=== PATIENT | female | born 1960 | race Caucasian/White ===

== ENCOUNTER 2021-05-12 06:50 | Observation (INO) | payer OTHER, SELFPAY ==
[2021-05-12] VITALS (10 sets, daily range): BP systolic 127–161; BP diastolic 72–88; PULSE 75–101; RESP 16–21; TEMP 36.3–36.9; O2SAT 96–100; BMI 25.4; BMI 25.6
[2021-05-12 07:23] LABS: Microscopic, Urine URINE MICROSCOPIC (MICROSCOPIC)
[2021-05-12 07:26] LABS: Appearance,Urine CLOUDY (Clear); Bilirubin,Urine Negative (Negative); Blood, Urine TRACE-I (Negative); Color,Urine YELLOW (Yellow); Glucose,Urine (UA) Negative (Negative); Ketones,Urine Negative (Negative); Leukocyte Esterase,Urine Negative (Negative); Nitrate,Urine Negative (Negative); PH,Urine 7.5 (5.0-8.5); Protein,Urine Negative (Negative); Urobilinogen,Urine 0.2 EU/dl (0.2)
--- NOTE | 2021-05-12 07:33 | CT_ITS ---
PROCEDURE INFORMATION: Exam: CT Abdomen And Pelvis With Contrast Exam date and time: 05/12/2021 7:33 AM Age: 60 years old Clinical indication: Abdominal pain; Acute; Additional info: Abd pain with nausea TECHNIQUE: Imaging protocol: Computed tomography of the abdomen and pelvis with contrast. Radiation optimization: All CT scans at this facility use at least one of these dose optimization techniques: automated exposure control; mA and/or kV adjustment per patient size (includes targeted exams where dose is matched to clinical indication); or iterative reconstruction. Contrast material: ISOVUE; Contrast volume: 75 ml; Contrast route: IV; COMPARISON: No relevant prior studies available. FINDINGS: Lungs: Bibasilar atelectasis Liver: 4.2 cm simple cyst in the right lobe of the liver. . No follow-up imaging recommended . Hepatic steatosis Gallbladder and bile ducts: Normal. No calcified stones. No ductal dilation. Pancreas: Normal. No ductal dilation. Spleen: Normal. No splenomegaly. Adrenal glands: Normal. No mass. Kidneys and ureters: Normal. No hydronephrosis. Stomach and bowel: Dilated loops of small bowel with air-fluid levels. Intermittent bowel wall thickening in loops of small bowel (series 3, image 51 findings may represent enteritis, ileus and obstruction.. Bowel wall thickening continues to the ileocecal valve. Series 3, image 85.. Appendix: Normal appendix Intraperitoneal space: Mild to moderate free fluid in the pelvis. Vasculature: Unremarkable. No abdominal aortic aneurysm. Lymph nodes: Unremarkable. No enlarged lymph nodes. Urinary bladder: Unremarkable as visualized. Reproductive: Unremarkable as visualized. Bones/joints: Unremarkable. No acute fracture. Soft tissues: Unremarkable. IMPRESSION: Dilated loops of small bowel with air-fluid levels. Intermittent bowel wall thickening in loops of small bowel (series 3, image 51 findings may represent enteritis, ileus and obstruction.. Bowel wall thickening continues to the ileocecal valve. Series 3, image 85..
[2021-05-12 07:46] LABS: Basophils % 0.5 % (0.1-2.0); Eosinophils # 0.2 K/mm3 (0.0-0.4); Eosinophils % 2.2 % (0.1-12.0); Hematocrit 42.5 % (37.0-47.0); Hemoglobin 13.9 g/dL (12.2-16.2); Lymphocytes % 11.9 % (10-50); Mean Corpuscular HGB Conc 32.8 g/dL (31.8-35.4); Mean Corpuscular Hemoglobin 29.6 pg (27.0-31.2); Mean Corpuscular Volume 90.2 fl (81-99); Mean Platelet Volume 7.9 fl (7.4-10.4); Monocytes # 0.4 K/mm3 (0.1-1.0); Monocytes % 4.5 % (1.7-9.3); Neutrophils # 6.8 K/mm3 (1.8-7.8); Neutrophils % 80.9 % (37.0-80.0); Platelet Count 257 K/mm3 (142-424); Red Cell Distribution Width 13.6 % (11.5-17.5); White Blood Count 8.5 K/mm3 (4.8-10.8)
[2021-05-12 07:46] LABS: Bacteria,Urine Trace /lpf; RBC,Urine Occasional #/hpf (0-3)
[2021-05-12 07:55] LABS: Chloride 106 mmol/L (98-107); Potassium 3.8 mmoL/L (3.5-5.1); Sodium 145 mmol/L (136-145)
[2021-05-12 07:57] LABS: Alanine Aminotransferase 32 U/L (12-78); Amylase 85 U/L (30-110); Anion Gap 12.8 mEq/L (5-15); Aspartate Amino Transferase 40 U/L (14-36); Blood Urea Nitrogen 12 mg/dl (7-17); Carbon Dioxide 30 mmol/L (22.0-30.0); Creatinine Clearance Estimated 93 mL/min (50-200); Estimated Glomerular Filt Rate 86 ml/min (>60); GFR (African American) 104 ML/MIN (>60)
[2021-05-12 07:58] LABS: Albumin Level 4.2 g/dl (3.5-5.0); Albumin/Globulin Ratio 1.4 (1.1-1.8); Alkaline Phosphatase 67 U/L (38-126); Bilirubin,Total 0.3 mg/dl (0.2-1.3); Calcium 9.2 mg/dl (8.4-10.2); Globulin 2.9 g/dL (1.3-3.2); Glucose 140 mg/dl (74-100); Lipase 86 U/L (23-300); Total Protein,Serum 7.1 g/dl (6.3-8.2)
[2021-05-12 08:04] LABS: C-Reactive Protein 4.7 mg/L (0-4)
--- NOTE | 2021-05-12 08:20 | HMH.EDGENADL ---
ED Disposition Clinical Impression: Enteritis, Small bowel obstruction Disposition: Admitted as Observation Condition on Discharge: Good Time of Disposition: 10:37 - Critical Care Critical Care Time: No Attestation: On 05/12/21, the high probability of a clinically significant, sudden or life threatening deterioration of the following system(s) required my full and direct attention, intervention and personal management. The time I documented below is in addition to time spent performing reported procedures but includes the following listed in this critical care notation. Medical Decision Making - Medical Records Medical records reviewed: Yes: I reviewed the patient's medical records. - Antwan Inquiry Pt receiving controlled substance: No Vital Signs: 05/12/21 06:52 05/12/21 12:43 05/12/21 14:02 Temperature 98.3 F Temperature Source Oral Pulse Rate 89 84 Pulse Rate [Left] 101 H Respiratory Rate 21 17 18 Blood Pressure 143/74 H 159/72 H Blood Pressure [Left Arm] 127/88 Blood Pressure Mean 110 126 Blood Pressure Mean [Left Arm] 101 Blood Pressure Source [Left Arm] Automatic Cuff 02 Sat by Pulse Oximetry 98 96 98 Oxygen Delivery Method Room Air - Lab Data Lab Results 05/12/21 07:00: Urine Color Yellow, Urine Appearance Cloudy, Urine pH 7.5, Ur Specific Kathryn 1.020, Urine Protein Negative, Urine Glucose (UA) Negative, Urine Ketones Negative, Urine Blood Trace-i, Urine Nitrate Negative, Urine Bilirubin Negative, Urine Urobilinogen 0.2, Ur Leukocyte Esterase Negative, Urine RBC Occasional, Urine WBC None, Ur Squamous Epith Cells None, Urine Bacteria Trace 05/12/21 07:25: WBC 8.5, RBC 4.70, Hgb 13.9, Hct 42.5, MCV 90.2, MCH 29.6, MCHC 32.8, RDW 13.6, Plt Count 257, MPV 7.9, Neut % (Auto) 80.9 H, Lymph % (Auto) 11.9, [place] % (Auto) 4.5, Eos % (Auto) 2.2, Baso % (Auto) 0.5, Neut # (Auto) 6.8, Lymph # (Auto) 1.0, [place] # (Auto) 0.4, Eos # (Auto) 0.2, Baso # (Auto) 0.0, ESR 17 05/12/21 07:25: Sodium 145, Potassium 3.8, Chloride 106, Carbon Dioxide 30, Anion Gap 12.8, BUN 12, Creatinine 0.70, Estimated Creat Clear 93, Estimated GFR 86, Est GFR ( Amer) 104, Glucose 140 H, Calcium 9.2, Total Bilirubin 0.3, AST 40 H, ALT 32, Alkaline Phosphatase 67, Troponin I < 0.01, C-Reactive Protein 4.7 H, Total Protein 7.1, Albumin 4.2, Globulin 2.9, Albumin/Globulin Ratio 1.4, Amylase 85, Lipase 86, Procalcitonin 0.084, TSH 1.15, Thyroxine (T4) 11.4 H 05/12/21 11:49: Troponin I < 0.01 05/12/21 13:58: SARS-CoV-2 (PCR) Not detected, Influenza A Untype (PCR) Not detected, Influenza Type B (PCR) Not detected Result diagrams: 05/12/21 07:25 05/12/21 07:25 Orders (Tests/Meds): ED MEDICATIONS Generic Name Dose Route Start Last Admin Trade Name Freq PRN Reason Stop Dose Admin Amlodipine Besylate 5 mg 05/12/21 14:58 Amlodipine 5mg Tablet PO 06/11/21 14:57 DAILY MANUEL Dextrose/Sodium Chloride 1,000 mls @ 125 mls/hr 05/12/21 14:58 Dextrose 5%-0.9% Nacl Iv Soln IV 06/11/21 14:57 .Q8H MANUEL Levothyroxine Sodium 75 mcg 05/13/21 09:00 Levothyroxine 75mcg (0.075mg) Tab PO 06/12/21 08:59 DAILY MANUEL Pt Own Med *Viibryd 40 mg 05/12/21 14:58 20mg Tablet* PO 06/11/21 14:57 DAILY MANUEL Discontinued Medications Generic Name Dose Route Start Last Admin Trade Name Freq PRN Reason Stop Dose Admin Sodium Chloride 1,000 mls @ 999 mls/hr 05/12/21 08:30 05/12/21 09:33 Sod Chlor 0.9% 1000ml Bag IV 05/12/21 09:30 999 mls/hr .Q1H1M MANUEL Administration Iopamidol 75 ml 05/12/21 08:51 05/12/21 08:52 Iopamidol-370 (76%);100ml Bottle IV 05/12/21 08:52 75 ml ONCE ONE Administration Ketorolac Tromethamine 30 mg 05/12/21 07:32 05/12/21 07:34 Ketorolac 30mg/Ml Vial IV 05/12/21 07:33 30 mg ONCE ONE Administration Morphine Sulfate 4 mg 05/12/21 12:37 05/12/21 12:59 Morphine 2mg/Ml Syringe IV 05/12/21 12:38 4 mg ONCE ONE Administration Ondansetron HCl
--- NOTE | 2021-05-12 08:21 | PC.NURSE ---
pt going to CT
[2021-05-12 08:26] LABS: Erythrocyte Sedimentation Rate 17 mm/hr (0-30)
[2021-05-12 08:27] LABS: Procalcitonin 0.084 ng/mL (0.0-2.0)
[2021-05-12 08:29] LABS: T4 (Thyroxine) 11.4 ug/dl (5.53-11.0); Troponin I < 0.01 ng/ml (0.00-0.034)
[2021-05-12 08:41] LABS: Thyroid Stimulating Hormone 1.15 uIU/mL (0.465-4.68)
--- NOTE | 2021-05-12 10:14 | PC.NURSE ---
Called to have paged.
[2021-05-12 12:40] LABS: Troponin I < 0.01 ng/ml (0.00-0.034)
--- NOTE | 2021-05-12 14:05 | PC.NURSE ---
per tobacco warehouse agent pt boarding in ER, will notify when a bed is available.
[2021-05-12 14:16] LABS: Coronavirus 19, PCR Not Detected (NotDetected); Influenza A, PCR Not Detected (NotDetected); Influenza B, PCR Not Detected (NotDetected)
--- NOTE | 2021-05-12 14:48 | HMH.PHAINT ---
MEDICATION RECONCILIATION COMPLETE USING EXTERNAL PHARMACY FILL HISTORY.
--- NOTE | 2021-05-12 14:49 | P.CONPHA_ITS ---
[facility] Pharmacy VTE Monitoring - Patient Demographics Allergies/Adverse Reactions: Patient Allergies quetiapine [From Seroquel] Adverse Reaction (Mild, Verified 05/12/21 07:29) Irritable Height: 1.63 m Weight: 67.132 kg Patient Problems: Current Active Problems Enteritis (Acute) Small bowel obstruction (Acute) - VTE Risk Labs: VTE Related Lab Results Hgb 13.9 g/dL (12.2-16.2) 05/12/21 07:25 Hct 42.5 % (37.0-47.0) 05/12/21 07:25 Plt Count 257 K/mm3 (142-424) 05/12/21 07:25 BUN 12 mg/dl (7-17) 05/12/21 07:25 Creatinine 0.70 mg/dl (0.52-1.04) 05/12/21 07:25 Estimated Creat Clear 93 mL/min (50-200) 05/12/21 07:25 Was VTE Risk Assessment Performed: No Clinical Trial Participant: No - Prophylaxis VTE Prophylaxis Ordered?: Yes Types of VTE Prophylaxis: TEDS Knee High Location of Applied Device: Bilateral Lower Extremeties
--- NOTE | 2021-05-12 15:18 | PC.NURSE ---
pt states no needs at this time, offered to move pt over into a hospital bed, pt states she is okay at this time.
--- NOTE | 2021-05-12 15:20 | PC.NURSE ---
JOSELYN NICHOLAS states to cancel shelter monitor order.
--- NOTE | 2021-05-12 16:38 | PC.NURSE ---
report called to kelly paulino on OB at this time
--- NOTE | 2021-05-12 16:48 | PC.NURSE ---
ARRIVED AT FLOOR AT THIS TIME IN ROOM 279. POC EXPLAINED AND PT AGREEABLE.
--- NOTE | 2021-05-12 18:32 | PC.NURSE ---
Pt resting in bed at this time. reports pain is down to a 2/10. reports she is going to try to nap. no current need. iv fluids infusing.
[2021-05-13 04:00] VITALS: BP 141/71; PULSE 85; RESP 18; TEMP 36.8; O2SAT 98
--- NOTE | 2021-05-13 06:12 | PC.NURSE ---
LATE ENTRY: 0400 PT HAS RESTED WELL THIS SHIFT AND HAS NOT REQUIRED ANY PAIN MEDICATION. NO ACUTE CHANGES NOTED FROM INITIAL ASSESSMENT. VSS. WILL CONTINUE TO MONITOR.
[2021-05-13 08:00] VITALS: BP 134/74; BP 143/70; PULSE 74; PULSE 80; RESP 16; TEMP 36.7; O2SAT 100; O2SAT 97
--- NOTE | 2021-05-13 08:35 | HMH.HP ---
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 She is unvaccinated. She successfully recovered after treatment with a Medrol Dosepak and a round of Augmentin because of upper respiratory symptoms from her healthcare provider in [place], [place]. She was feeling better but 2 days ago began to have the onset of lower abdominal pain bilaterally that was also associated with a very reduced stool production and a feeling of incomplete emptying and a feeling of needing to have gas. She had no vomiting, she notes that when she had Covid she had fairly significant diarrhea but never had blood or mucus in the diarrhea. The diarrhea resolved about a week ago. She has not been on any kind of GI medication or antibiotics since that time. Her surgical history is notable for 4 C-sections. She has never had bowel obstruction or other issues before like this. [facility] History I have reviewed the patient's past medical history: Yes Medical History: Reports:: Hypertension Denies:: Cancer, Diabetes Mellitus Type 1, Diabetes Mellitus Type 2, MRSA *Have you ever received a pneumonia vaccine?: No *Have you received a flu vaccine this season?: No Other Surgeries: Yes: (X4) Amputation: No Fractures: No - *Social History Last grade of school completed: Advanced degree Smoking Status: Former smoker Alcohol Intake: never *Occupational Status:: employed Housing: house Household Members: significant other, family, children *Travel in the last 8 weeks: None Family Hx:: Cancer Review of Systems - Review of Systems Review of systems:: pertinent systems reviewed and negative unless documented below Meds Home Medications Medication Instructions Recorded Confirmed Type Amlodipine Besylate [Norvasc 5mg 5 mg PO DAILY 05/12/21 05/12/21 History tablet] Levothyroxine Sodium 75 mcg PO DAILY 05/12/21 05/12/21 History [Levothyroxine 75mcg (0.075mg) Tab] Vilazodone HCl [Viibryd 40mg 40 mg PO AMLAB 05/12/21 05/12/21 History Tablet] buPROPion HCL [Bupropion Xl] 300 mg PO AMLAB 05/12/21 05/12/21 History Allergies Allergy/AdvReac Type Severity Reaction Status Date / Time quetiapine [From Seroquel] AdvReac Mild Irritable Verified 05/12/21 07:29 Exam Vital signs and Labs for Last 24 Hours: Temp Pulse Resp BP Pulse Ox 98.0 F 80 16 143/70 H 97 05/13/21 08:00 05/13/21 08:00 05/13/21 08:00 05/13/21 08:00 05/13/21 08:00 Laboratory Results - last 24 hr 05/12/21 07:25: TSH 1.15 05/12/21 11:49: Troponin I < 0.01 05/12/21 13:58: SARS-CoV-2 (PCR) Not detected, Influenza A Untype (PCR) Not detected, Influenza Type B (PCR) Not detected I & O for Last 24 hours: Intake & Output 05/10/21 05/11/21 05/12/21 05/13/21 11:59 11:59 11:59 11:59 Weight 148 lb 150 lb - Constitutional no acute distress - *Routine HEENT Exam Head: Present: normocephalic Eye: Present: EOMI, PERRL ENT: Present: mucous membranes moist - *Routine Neck Exam Present: supple. Absent: lymphadenopathy - *Routine Respiratory Exam Present: CTA bilaterally - *Routine Cardiovascular Exam Present: RRR - *Routine Abdominal Exam Present: tenderness Comments: No abdominal bruising or other vascular stigmata. Her abdomen is soft, reduced bowel sounds. She has tenderness in both lower quadrants, fairly equally, no rebound, no guarding. No masses palpable. - *Routine Rectal Exam Rectal:: deferred - *Routine Genitalia Exam Genitalia:: deferred - *Routine Extremities Exam Absent: cyanosis, clubbing, edema - *Routine Skin Exam Present: warm. Absent: rash - *Routine Neurological Exam Present: alert, oriented X3 Assessment and Plan (1) Enteritis Status: Acute Category: Medical Code(s): K52.9 - Noninfective gastroenteritis and colitis, unspecified (2) Small bow
--- NOTE | 2021-05-13 08:47 | HMH.GSCON ---
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 She had been diagnosed with COVID-19 pneumonia 3 weeks ago. During that time she had received steroids and antibiotics. She does state that she had some diarrhea during the time of her Covid treatment. She had been feeling better but 2 days ago she had onset of lower abdominal pain in the bilateral lower quadrants. She has had some decreased stool production and feels incomplete evacuation but no hard stools or constipation. Her diarrhea had resolved about 1 week ago. She has had previous x4 via low midline. Review of Systems - Review of Systems Review of systems:: pertinent systems reviewed and negative unless documented below [facility] History I have reviewed the patient's past medical history: Yes Medical History: Reports:: Hypertension Denies:: Cancer, Diabetes Mellitus Type 1, Diabetes Mellitus Type 2, MRSA *Have you ever received a pneumonia vaccine?: No *Have you received a flu vaccine this season?: No Other Surgeries: Yes: (X4) Amputation: No Fractures: No - *Social History Last grade of school completed: Advanced degree Smoking Status: Former smoker Alcohol Intake: never *Occupational Status:: employed Housing: house Household Members: significant other, family, children *Travel in the last 8 weeks: None Family Hx:: Cancer Meds Home Medications Medication Instructions Recorded Confirmed Type Amlodipine Besylate [Norvasc 5mg 5 mg PO DAILY 05/12/21 05/12/21 History tablet] Levothyroxine Sodium 75 mcg PO DAILY 05/12/21 05/12/21 History [Levothyroxine 75mcg (0.075mg) Tab] Vilazodone HCl [Viibryd 40mg 40 mg PO AMLAB 05/12/21 05/12/21 History Tablet] buPROPion HCL [Bupropion Xl] 300 mg PO AMLAB 05/12/21 05/12/21 History Allergies Allergy/AdvReac Type Severity Reaction Status Date / Time quetiapine [From Seroquel] AdvReac Mild Irritable Verified 05/12/21 07:29 Exam Vital signs and Labs for Last 24 Hours: Temp Pulse Resp BP Pulse Ox 98.0 F 80 16 143/70 H 97 05/13/21 08:00 10/04/21 08:00 05/13/21 08:00 05/13/21 08:00 05/13/21 08:00 Laboratory Results - last 24 hr 05/12/21 11:49: Troponin I < 0.01 05/12/21 13:58: SARS-CoV-2 (PCR) Not detected, Influenza A Untype (PCR) Not detected, Influenza Type B (PCR) Not detected I & O for Last 24 hours: Intake & Output 05/10/21 05/11/21 05/12/21 05/13/21 11:59 11:59 11:59 11:59 Weight 148 lb 150 lb - Constitutional no acute distress - *Routine Abdominal Exam Present: soft Comments: She has some mild tenderness diffusely in the lower quadrants. No guarding or rebound. Well-healed low midline scar. Results - Labs 05/12/21 07:25 05/12/21 07:25 Laboratory Results - last 24 hr 05/12/21 11:49: Troponin I < 0.01 05/12/21 13:58: SARS-CoV-2 (PCR) Not detected, Influenza A Untype (PCR) Not detected, Influenza Type B (PCR) Not detected Assessment and Plan (1) Enteritis Status: Acute Category: Medical Code(s): K52.9 - Noninfective gastroenteritis and colitis, unspecified (2) Small bowel obstruction Status: Acute Category: Medical Code(s): K56.609 - Unspecified intestinal obstruction, unspecified as to partial versus complete obstruction - Assessment and plan all Dx Assessment and Plan for all problems:: This could be a low-grade partial obstruction. However, this seems potentially more consistent with inflammatory condition. I will give her limited clear liquids. If clinically her situation remains equivocal may obtain a small bowel follow-through.
[2021-05-13 10:59] LABS: Erythrocyte Sedimentation Rate 18 mm/hr (0-30)
[2021-05-13 11:47] LABS: Coronavirus 19 IgG Antibody Positive (Negative); Coronavirus 19 IgM Antibody Positive (Negative)
[2021-05-13 16:00] VITALS: BP 133/68; PULSE 66; RESP 16; TEMP 36.6; O2SAT 99
--- NOTE | 2021-05-13 16:30 | PC.NURSE ---
Routine reassessment completed. Pt. has passed moderate BM, Pt. has reports passing flatus, and reports pain is at 3/10 after Tylenol. Pt. reports feeling bloated and feeling like she has gas pain, but her abd is tender as well. No further acute changes from previous assessment. Pt. denies needs. Pt. has rested well throughout the shift, and needed Tylenol twice this shift, Once this am for a headache, and once this afternoon for ABD pain. Pt. has refused to take morphine this shift. Pt. states it made the pain worse and gave me a very bad headache. Pt. denies needs, call light within reach, will continue to monitor.
--- NOTE | 2021-05-13 18:14 | PC.NURSE ---
Family member brought home medication Viibryd in, Medication placed in omni in pt. own medications area.
[2021-05-13 19:45] VITALS: BP 152/80; PULSE 83; RESP 17; TEMP 36.8; O2SAT 98
--- NOTE | 2021-05-13 19:57 | PC.NURSE ---
dr. gutierrez paged at this time
--- NOTE | 2021-05-14 04:10 | PC.NURSE ---
PT HAS RESTED WELL THIS SHIFT. VSS. PAIN WELL CONTROLLED WITH ORDERED KETOROLAC 30MG IV Q6H PER OCT. PT HAS SLEPT WELL. SHE IS PASSING GAS. NO NEW BM. A&O x4. BOWELS ACTIVE X4 QUADRANTS. LUNGS CTAB IN ALL MENDOZA. IV PATENT AND INFUSING D5NS AT 125ML/HR. PT TOLERATED CLEAR LIQUIDS PRIOR TO MIDNIGHT AND HAS BEEN NPO AFTER MIDNIGHT. CALL LIGHT IN REACH.
[2021-05-14 04:15] VITALS: BP 131/98; PULSE 87; RESP 17; TEMP 36.7; O2SAT 98
[2021-05-14 08:29] LABS: Basophils % 0.1 % (0.1-2.0); Eosinophils % 0.1 % (0.1-12.0); Hemoglobin 12.2 g/dL (12.2-16.2); Lymphocytes # 0.7 K/mm3 (0.7-4.5); Lymphocytes % 9.8 % (10-50); Mean Corpuscular HGB Conc 33.8 g/dL (31.8-35.4); Mean Corpuscular Hemoglobin 29.7 pg (27.0-31.2); Mean Corpuscular Volume 87.9 fl (81-99); Monocytes # 0.3 K/mm3 (0.1-1.0); Neutrophils # 6.5 K/mm3 (1.8-7.8); Platelet Count 256 K/mm3 (142-424); Red Cell Distribution Width 13.6 % (11.5-17.5); White Blood Count 7.5 K/mm3 (4.8-10.8)
[2021-05-14 08:35] LABS: MANUAL DIFFERENTIAL MANUAL DIFFERENTIAL (MANUAL DIFF)
[2021-05-14 08:39] LABS: Alanine Aminotransferase 22 U/L (12-78); Albumin Level 3.4 g/dl (3.5-5.0); Albumin/Globulin Ratio 1.4 (1.1-1.8); Alkaline Phosphatase 45 U/L (38-126); Anion Gap 6.6 mEq/L (5-15); Aspartate Amino Transferase 21 U/L (14-36); Bilirubin,Total 0.3 mg/dl (0.2-1.3); Blood Urea Nitrogen 4 mg/dl (7-17); Calcium 8.6 mg/dl (8.4-10.2); Carbon Dioxide 27 mmol/L (22.0-30.0); Chloride 111 mmol/L (98-107); Creatinine Clearance Estimated 165 mL/min (50-200); Estimated Glomerular Filt Rate 164 ml/min (>60); GFR (African American) 198 ML/MIN (>60); Globulin 2.5 g/dL (1.3-3.2); Glucose 163 mg/dl (74-100); Potassium 3.6 mmoL/L (3.5-5.1); Sodium 141 mmol/L (136-145); Total Protein,Serum 5.9 g/dl (6.3-8.2)
[2021-05-14 09:15] LABS: Lymphocytes % 8 % (10-50); Monocytes % 5 % (2-9); Neutrophils % 87 % (42-76); Platelet Estimate Normal; Total Cells Counted 100
[2021-05-14 12:00] VITALS: BP 150/80; PULSE 92; RESP 16; TEMP 36.4; O2SAT 98
--- NOTE | 2021-05-14 12:30 | HMH.DCSUM ---
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 She is unvaccinated. She successfully recovered after treatment with a Medrol Dosepak and a round of Augmentin because of upper respiratory symptoms from her healthcare provider in [place], [place]. She was feeling better but 2 days ago began to have the onset of lower abdominal pain bilaterally that was also associated with a very reduced stool production and a feeling of incomplete emptying and a feeling of needing to have gas. She had no vomiting, she notes that when she had Covid she had fairly significant diarrhea but never had blood or mucus in the diarrhea. The diarrhea resolved about a week ago. She has not been on any kind of GI medication or antibiotics since that time. Her surgical history is notable for 4 C-sections. She has never had bowel obstruction or other issues before like this. Hospital Course Hospital Course: Patient admitted for concern for small bowel obstruction/ileus. Recent Covid infection. Given bowel rest and started on steroids and IV fluids. Surgery consulted, recommended continued monitoring and gradual advancement of diet with initiation of clear liquids. During hospitalization, patient has tolerated clear liquid diet, having bowel movements. Normal urine output. Remains afebrile. Advance to full liquids on day of discharge. Tolerating steroids and Toradol. Overall patient doing better and wanting to go home. Agree that this is appropriate with slow advancement of her diet in the home setting and close follow-up. We will continue Toradol as needed for pain and steroids for inflammation/enteritis. Examined on day of discharge, medically stable for discharge home. Objective Vital signs: Temp Pulse Resp BP Pulse Ox 98.0 F 87 17 131/98 H 98 05/14/21 04:15 05/14/21 04:15 05/14/21 04:15 05/14/21 04:15 05/14/21 04:15 no acute distress - *Routine HEENT Exam Head: Present: normocephalic Eye: Present: EOMI, PERRL ENT: Present: mucous membranes moist - *Routine Neck Exam Present: supple - *Routine Respiratory Exam Present: CTA bilaterally - *Routine Cardiovascular Exam Present: RRR - *Routine Abdominal Exam Present: soft, normoactive bowel sounds, tenderness (mild non-focal, intervally improved.) - *Routine Extremities Exam Absent: cyanosis, clubbing, edema - *Routine Skin Exam Present: warm. Absent: rash - Detailed Eye Exam Eyelids: Bilateral normal inspection Results Labs on day of discharge: Labs from last 24 hours 05/14/21 05/14/21 07:50 07:50 WBC 7.5 RBC 4.10 L Hgb 12.2 Hct 36.0 L MCV 87.9 MCH 29.7 MCHC 33.8 RDW 13.6 Plt Count 256 MPV 8.0 Neut % (Auto) 86.0 H Lymph % (Auto) 9.8 L [place] % (Auto) 4.0 Eos % (Auto) 0.1 Baso % (Auto) 0.1 Neut # (Auto) 6.5 Lymph # (Auto) 0.7 [place] # (Auto) 0.3 Eos # (Auto) 0.0 Baso # (Auto) 0.0 Total Counted 100 Neutrophils % (Manual) 87 H Lymphocytes % (Manual) 8 L Monocytes % (Manual) 5 Platelet Estimate Normal Sodium 141 Potassium 3.6 Chloride 111 H Carbon Dioxide 27 Anion Gap 6.6 BUN 4 L D Creatinine 0.40 L D Estimated Creat Clear 165 Estimated GFR 164 Est GFR ( Amer) 198 D Glucose 163 H Calcium 8.6 Total Bilirubin 0.3 AST 21 D ALT 22 D Alkaline Phosphatase 45 Total Protein 5.9 L Albumin 3.4 L Globulin 2.5 Albumin/Globulin Ratio 1.4 DS: Diagnosis - Discharge Diagnosis (1) Enteritis Status: Acute (2) Small bowel obstruction Status: Acute Discharge Plan - Patient Discharge Instructions ACTIVITY: Continue current activity DIET: advance to your usual diet - Follow up Plan Disposition: Home, Self-Care Condition at discharge:: Improving Home Medications: Home
== END 2021-05-14 16:10 | disposition home or self-care (01) ==
LOC: ER 10:37 → 2ND 14:33 → OB 16:02 → 2ND 19:01
PROVIDERS: Emergency Medicine; Admitting Provider Internal Medicine Adolescent Medicine; Emergency Provider Emergency Medicine; PCP Pediatrics; Visit Provider Internal Medicine Adolescent Medicine
DX: K56.600 Partial intestinal obstruction, unspecified as to cause (principal); K52.9 Noninfective gastroenteritis and colitis, unspecified; Z86.16 Personal history of COVID-19; I10 Essential (primary) hypertension; E03.9 Hypothyroidism, unspecified
CPT/HCPCS: 36415; 74177; 80053; 81001; 82150; 83690; 84145; 84436; 84443; 84484; 85007; 85025; 85651; 86140; 86328; 96365; 96375; 99284; C9803; G0378; J2405; Q9967; U0003; U0005

== ENCOUNTER 2023-09-22 10:36 | Emergency (ER) | payer OTHER, SELFPAY ==
[2023-09-22] VITALS (10 sets, daily range): BP systolic 133–175; BP diastolic 56–82; PULSE 58–82; RESP 16–20; TEMP 36.5–36.7; O2SAT 97–99; BMI 27.3
--- NOTE | 2023-09-22 11:25 | CT_ITS ---
FINAL REPORT TECHNIQUE: Postcontrast axial images through the abdomen and pelvis were performed. This study was performed with techniques to keep radiation doses as low as reasonably achievable, (ALARA). Individualized dose reduction techniques using automated exposure control or adjustment of mA and/or kV according to the patient's size were employed. CLINICAL HISTORY: RLQ, RUQ, LLQ pain COMPARISON: 05/12/2021 FINDINGS: Abdomen: The lung bases are clear. There is fatty infiltration of the liver. There is a stable cyst in the medial right hepatic lobe measuring 4.5 cm. The spleen is unremarkable. The adrenals are normal. The pancreas is unremarkable. The kidneys enhance appropriately. The aorta is normal in caliber. No free fluid or adenopathy is identified. Pelvis: The appendix is normal. Mild bladder wall thickening is noted, likely inflammatory. There are several mildly dilated small bowel loops in the right abdomen and pelvis with wall thickening, may represent enteritis or other inflammatory process. There is mild edema in the small bowel mesentery in this region. There is a small amount of pelvic free fluid, likely inflammatory. IMPRESSION: Findings may represent enteritis or other inflammatory process as detailed above. Reviewed, Interpreted and Dictated by Fermin Rae III, MD Transcribed by Darya Ramos Authenticated and [facility]
--- NOTE | 2023-09-22 11:27 | HMH.EDGENADL ---
Discharge Plan Disposition Patient Disposition: Home, Self-Care Condition: Good Prescriptions Prescriptions: New ondansetron 4 mg tablet,disintegrating 4 mg PO DAILY PRN (Reason: nausea and vomiting) 4 Days Qty: 16 0RF No Action amlodipine 5 MG tablet 5 mg PO DAILY levothyroxine 75 MCG tablet 75 mcg PO DAILY Patient Comments: TAKE 1 TABLET BY MOUTH EVERY DAY vilazodone 40 MG tablet 40 mg PO AMLAB Patient Comments: TAKE 1 TABLET BY MOUTH EVERY DAY IN THE MORNING WITH BREAKFAST bupropion HCl 300 MG tablet extended release 24 hr 300 mg PO AMLAB ketorolac 10 MG tablet 10 mg PO Q6HP MDD 40mg/day PRN (Reason: Breakthru Moderate Pain) 4 Days Qty: 16 0RF Rx Instructions: Therapy initiated with IV/IM dose dexamethasone 4 MG tablet 4 mg PO BID 4 Days Qty: 8 0RF Referrals Follow up/Referrals: Sampson Romero [Primary Care Provider] - See instructions Instructions Patient Instructions: DI for Acute Abdominal Pain Discharge ED Provider: Daniel Townsend Adult HPI General Chief complaint: Abdominal Pain Stated complaint: Abdominal pain Time Seen by Provider: 09/22/23 11:18 Mode of Arrival: Ambulatory Source of Information: Patient Limitations: No Limitations Description of Symptoms (Recalled from ER Triage Doc. by RN): Patient complaint of abdomen pain that started Thursday. States he has been nauseous as well. History of Present Illness HPI narrative: 63-year-old female with past medical history significant for small bowel obstruction, depression, anxiety, hypothyroidism, presents today for evaluation concerning abdominal pain and bloating sensation that has been ongoing since Thursday. States that her symptoms worsened on yesterday and this morning. She denies having any constipation or diarrhea noting that her last normal bowel movement was this morning. States that she has had episodes of N/V and has a generalized headache. Denies any fevers, chills, chest pain, shortness of breath, dysuria, hematuria or any other associated symptoms at this time. Has not had any interventions as of yet. No further complaints. Related Data Home Medications Medication Instructions Recorded Confirmed amlodipine 5 mg tablet 5 mg PO DAILY htn 05/12/21 05/12/21 bupropion HCl 300 mg 24 hr tablet, 300 mg PO AMLAB Depression 05/12/21 05/12/21 extended release levothyroxine 75 mcg tablet 75 mcg PO DAILY thyroid 05/12/21 05/12/21 vilazodone 40 mg tablet 40 mg PO AMLAB Depression 05/12/21 05/12/21 Previous Rx's Medication Instructions Recorded dexamethasone 4 mg tablet 4 mg PO BID 4 days #8 tabs 05/14/21 ketorolac 10 mg tablet 10 mg PO Q6HP PRN Breakthru 05/14/21 Moderate Pain 4 days #16 tabs ondansetron 4 mg disintegrating 4 mg PO DAILY PRN nausea and 09/22/23 tablet vomiting 4 days #16 tabs Allergies Allergy/AdvReac Type Severity Reaction Status Date / Time quetiapine [From Seroquel] AdvReac Mild Irritable Verified 05/12/21 07:29 [facility] Disclaimer: The information contained in this section may have been updated after the patient was seen, as this information can be updated by other users. 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[employer] caffeine: No ROS Obtained: Yes All systems reviewed & no additional complaints except as documented Physical Exam General General appearance: alert and in no apparent distress Head Head exam: atraumatic and normocephalic Eye Eye exam: Present normal appearance, PERRL and EOMI ENT ENT exam: Present normal oropharynx and mucous membranes moist Neck Neck exam: Present full ROM; Absent meningismus Respiratory Respiratory exam: Absent respiratory distress, wheezes, stridor or accessory muscle use Cardiovascular Cardiovascular exam: Present normal rhythm Abdominal Exam Abdominal exam: Present soft; Absent distention, tenderness, guarding, rebound or rigidity Abdominal tenderness: Present RUQ, RLQ, LLQ and epigastrium Neurological Exam Neurological exam: Present alert, oriented X3 and CN II-XII intact; Absent motor sensory deficit Psychiatric Psychiatric exam: Present normal affect and normal mood Skin Skin exam: Present warm and dry Medical Decision Making Medical Records Medical records reviewed: Yes I reviewed the patient's medical records. Antwan Inquiry Pt receiving controlled substance: No Antwan was queried for this patient: No Vital Signs: 09/22/23 10:38 09/22/23 10:42 09/22/23 12:15 Temperature 98.0 F Temperature Source Oral Pulse Rate 82 76 Pulse Rate [Radial] 82 Respiratory Rate 16 Blood Pressure 157/82 H 175/77 H Blood Pressure [Right Arm] 157/82 H Blood Pressure Mean [Right Arm] 107 Blood Pressure Source [Right Arm] Automatic Cuff Blood Pressure Position [Right Arm] Sitting 02 Sat by Pulse Oximetry 99 98 99 Oxygen Delivery Method Room Air Room Air Room Air 09/22/23 12:30 09/22/23 12:40 09/22/23 13:00 Temperature Temperature Source Pulse Rate 58 L 60 62 Pulse Rate [Radial] Respiratory Rate Blood Pressure 159/80 H 147/77 H 144/76 H Blood Pressure [Right Arm] Blood Pressure Mean [Right Arm] Blood Pressure Source [Right Arm] Blood Pressure Position [Right Arm] 02 Sat by Pulse Oximetry 98 99 98 Oxygen Delivery Method Room Air Room Air Room Air 09/22/23 13:13 Temperature 97.7 F Temperature Source Oral Pulse Rate Pulse Rate [Radial] Respiratory Rate Blood Pressure Blood Pressure [Right Arm] Blood Pressure Mean [Right Arm] Blood Pressure Source [Right Arm] Blood Pressure Position [Right Arm] 02 Sat by Pulse Oximetry Oxygen Delivery Method Lab Data Lab Results 09/22/23 10:50: WBC 6.4, RBC 4.97, Hgb 15.1, Hct 43.6, MCV 87.8, MCH 30.3, MCHC 34.6, RDW 13.1, Plt Count 206, MPV 8.5, Neut % (Auto) 57.8, Lymph % (Auto) 33.8, [place] % (Auto) 5.9, Eos % (Auto) 2.2, Baso % (Auto) 0.4, Neut # (Auto) 3.7, Lymph # (Auto) 2.2, [place] # (Auto) 0.4, Eos # (Auto) 0.1, Baso # (Auto) 0.0, Sodium 136, Potassium 3.9, Chloride 103, Carbon Dioxide 30, Anion Gap 6.9, BUN 12, Creatinine 0.70, Estimated Creat Clear 67, Estimated GFR 85, Est GFR ( Amer) 103, Glucose 105 H, Calcium 9.0, Total Bilirubin 1.1, AST 39 H, ALT 41, Alkaline Phosphatase 70, Total Protein 7.1, Albumin 4.3, Globulin 2.8, Albumin/Globulin Ratio 1.5, Lipase 119 09/22/23 12:04: Urine Color Yellow, Urine Appearance Clear, Urine pH 7.0, Ur Specific [place] 1.010, Urine Protein Negative, Urine Glucose (UA) Negative, Urine Ketones Negative, Urine Blood Trace-i, Urine Nitrate Negative, Urine Bilirubin Negative, Urine Urobilinogen 0.2, Ur Leukocyte Esterase Negative, Urine RBC None, Urine WBC None, Ur Squamous Epith Cells Occasional, Urine Bacteria Trace 09/22/23 10:50 09/22/23 10:50 Orders (Tests/Meds): ED MEDICATIONS Generic Name Dose Route Start Last Admin Trade Name Freq PRN Reason Stop Dose Admin Sodium Chloride 10 ml 09/22/23 10:54 Sodium Chloride 0.9% 10ml Flush Syringe IV 10/22/23 10:53 NEEDED PRN Maintain IV Site Sodium Chloride 10 ml 09/22/23 12:10 09/22/23 12:12 Sodium Chloride 0.9% 10ml Syr (Rad Only) IV 10/22/23 12:09 10 ml NEEDED PRN Administration Maintain IV Site Discontinued Medications Generic Name Dose Route Start Last Admin Trade Name Freq PRN Reason Stop Dose Admin Lactated Ringer's 500 mls @ 999 mls/hr 09/22/23 11:25 09/22/23 11:33 Lactated Ringer's 1000 Ml Bag IV 09/22/23 11:55 999 mls/hr .Q31M ONE Administration Iopamidol 75 ml 09/22/23 12:10 09/22/23 12:12 Iopamidol-370 (76%);100ml Bottle IV 09/22/23 12:11 75 ml ONCE ONE Administration Ketorolac Tromethamine 30 mg 09/22/23 11:25 09/22/23 11:33 Ketorolac 30mg/Ml Vial IV 09/22/23 11:26 30 mg ONCE ONE Administration Ondansetron HCl 4 mg 09/22/23 11:25 09/22/23 11:33 Ondansetron 4mg/2ml Vial IV 09/22/23 11:26 4 mg ONCE ONE Administration ORDERS Category Date Time Status CT abdomen pelvis w con Stat Cat Scan 09/22/23 11:25 Completed CBC w/Auto Diff [Complete Blood Count Auto Diff] Stat Lab 09/22/23 10:50 Completed CMP [Comprehensive Metabolic Panel] Stat Lab 09/22/23 10:50 Completed Lactic Acid Stat Lab 09/22/23 13:15 Received Lipase Stat Lab 09/22/23 10:50 Completed UA [Urinalysis and Microscopic] Stat Lab 09/22/23 12:04 Completed ECG initial Besson Routine Y 09/22/23 11:31 Completed ECG Data Tracing #1: I reviewed this ECG and interpreted as documented below: EKG personally interpreted by me. Sinus bradycardia with a rate of [address] elevations are noted. PA interval of 165. QTc of 400. QRS 72. Medical Decision Narrative: 63-year-old female with past medical history significant for small bowel obstruction, depression, anxiety, hypothyroidism, presents today for evaluation concerning abdominal pain and bloating sensation that has been ongoing since Thursday. States that her symptoms worsened on yesterday and this morning. She denies having any constipation or diarrhea noting that her last normal bowel movement was this morning. States that she has had episodes of N/V and has a generalized headache. On assessment, patient is hemodynamically stable and in no acute distress. Afebrile. Physical exam was remarkable for tenderness to palpation in the epigastrium, right upper quadrant, right lower quadrant and left lower quadrant region. No CVA tenderness. Chest is clear to auscultation bilaterally. Other physical exam findings unremarkable. Differential diagnoses include but not limited to gastritis, gastroenteritis, cholecystitis, cholelithiasis, appendicitis, diverticulitis, ACS considered however low suspicion given that patient has no chest pain or shortness of breath, among others. Patient was given a fluid bolus of LR while in the ED. Her lab workup today did not show any elevation in WBC at 6.4. Her CMP was with an AST of 39 however otherwise nonactionable. Lipase was 119. No signs of UTI on urinalysis. CT imaging of abdomen and pelvis did show findings concerning for enteritis. On reassessment the patient remains hemodynamically stable and in no acute distress. Resting well on stretcher. I discussed her ED workup and results. She states that she is feeling improved at this time. Discussed fluid intake at home in the setting of her enteritis. Will also send home with prescription for Zofran. Provided with return ED precautions and instructions concerning PCP follow-up. She verbalized understanding and agreed with plan. Subsequently discharged home in medically stable in no acute distress. Critical Care Critical Care Time Critical Care Time: No
--- NOTE | 2023-09-22 11:31 | ECG_ITS ---
APPROVED REPORT Exam: Resting ECG HR:54 bpm ECG Measurements Heart Rate 54 AXES CA 165 P 73 QRSd 72 QRS 40 QT 415 T 73 QTc 400 Conclusion SINUS BRADYCARDIA BORDERLINE ECG UNCONFIRMED REPORT Electronically signed by : Barak Reyna MD 09/22/2023 21:53:49
[2023-09-22] MEDS: ONDANSETRON 4MG/2ML VIAL 4 MG IV (11:33)
[2023-09-22] MEDS: LACTATED RINGERS 1000ML 500 ML 999 ML IV (11:33)
[2023-09-22] MEDS: KETOROLAC 30MG/ML VIAL 30 MG IV (11:33)
[2023-09-22 11:36] LABS: Chloride 103 mmol/L (98-107); Potassium 3.9 mmoL/L (3.5-5.1); Sodium 136 mmol/L (136-145)
[2023-09-22 11:37] LABS: Basophils % 0.4 % (0.1-2.0); Eosinophils # 0.1 K/mm3 (0.0-0.4); Eosinophils % 2.2 % (0.1-12.0); Hematocrit 43.6 % (37.0-47.0); Hemoglobin 15.1 g/dL (12.2-16.2); Lymphocytes # 2.2 K/mm3 (0.7-4.5); Lymphocytes % 33.8 % (10-50); Mean Corpuscular HGB Conc 34.6 g/dL (31.8-35.4); Mean Corpuscular Hemoglobin 30.3 pg (27.0-31.2); Mean Corpuscular Volume 87.8 fl (81-99); Mean Platelet Volume 8.5 fl (7.4-10.4); Monocytes # 0.4 K/mm3 (0.1-1.0); Monocytes % 5.9 % (1.7-9.3); Neutrophils # 3.7 K/mm3 (1.8-7.8); Neutrophils % 57.8 % (37.0-80.0); Platelet Count 206 K/mm3 (142-424); Red Blood Count 4.97 M/mm3 (4.20-5.40); Red Cell Distribution Width 13.1 % (11.5-17.5); White Blood Count 6.4 K/mm3 (4.8-10.8)
[2023-09-22 11:39] LABS: Alanine Aminotransferase 41 U/L (12-78); Albumin Level 4.3 g/dl (3.5-5.0); Albumin/Globulin Ratio 1.5 (1.1-1.8); Alkaline Phosphatase 70 U/L (38-126); Anion Gap 6.9 mEq/L (5-15); Aspartate Amino Transferase 39 U/L (14-36); Bilirubin,Total 1.1 mg/dl (0.2-1.3); Blood Urea Nitrogen 12 mg/dl (7-17); Carbon Dioxide 30 mmol/L (22.0-30.0); Creatinine Clearance Estimated 67 mL/min (50-200); Estimated Glomerular Filt Rate 85 ml/min (>60); GFR (African American) 103 ML/MIN (>60); Globulin 2.8 g/dL (1.3-3.2); Glucose 105 mg/dl (74-100); Lipase 119 U/L (23-300); Total Protein,Serum 7.1 g/dl (6.3-8.2)
[2023-09-22] MEDS: IOPAMIDOL-370 (76%);100ML BOTTLE 75 ML IV (12:12)
[2023-09-22] MEDS: SODIUM CHLORIDE 0.9% 10ML SYR (RAD ONLY) 10 ML IV (12:12)
[2023-09-22 12:20] LABS: Microscopic, Urine URINE MICROSCOPIC (MICROSCOPIC)
[2023-09-22 12:21] LABS: Appearance,Urine CLEAR (Clear); Bilirubin,Urine Negative (Negative); Blood, Urine TRACE-I (Negative); Color,Urine YELLOW (Yellow); Glucose,Urine (UA) Negative (Negative); Ketones,Urine Negative (Negative); Leukocyte Esterase,Urine Negative (Negative); Nitrate,Urine Negative (Negative); Protein,Urine Negative (Negative); Urobilinogen,Urine 0.2 EU/dl (0.2)
[2023-09-22 12:40] LABS: Bacteria,Urine Trace /lpf; Squamous Epithelial Cell,Urine Occasional #/hpf (0-5)
[2023-09-22 13:48] LABS: Lactic Acid 0.9 mmol/L (0.7-2.1)
[2023-09-22] MEDS: ACETAMINOPHEN 500MG TAB 1000 MG PO (13:52)
== END 2023-09-22 14:03 | disposition home or self-care (01) ==
PROVIDERS: Emergency Provider Emergency Medicine; PCP Pediatrics
DX: R10.84 Generalized abdominal pain (principal); R00.1 Bradycardia, unspecified; R51.9 Headache, unspecified; R11.2 Nausea with vomiting, unspecified; E03.9 Hypothyroidism, unspecified
CPT/HCPCS: 74177; 80053; 81001; 83605; 83690; 85025; 93005; 96374; 96375; 99285; J2405; Q9967

== ENCOUNTER 2024-01-18 17:29 | Emergency (ER) | payer OTHER, SELFPAY ==
[2024-01-18] VITALS (8 sets, daily range): BP systolic 138–179; BP diastolic 79–106; PULSE 61–81; RESP 11–20; TEMP 37; O2SAT 94–100; BMI 23.9
--- NOTE | 2024-01-18 17:32 | ECG_ITS ---
APPROVED REPORT Exam: Resting ECG HR:85 bpm ECG Measurements Heart Rate 85 AXES UT 179 P 71 QRSd 76 QRS 13 QT 365 T 71 QTc 407 Conclusion SINUS RHYTHM NORMAL ECG Electronically signed by : BERNARDO LITTLE, 01/18/2024 22:28:56
--- NOTE | 2024-01-18 17:59 | XR_ITS ---
PROCEDURE INFORMATION: Exam: XR Chest Exam date and time: 01/18/2024 6:04 PM Age: 63 years old Clinical indication: Pain; Chest pressure; Additional info: Cp TECHNIQUE: Imaging protocol: Radiologic exam of the chest. Views: 1 view. COMPARISON: No relevant prior studies available. FINDINGS: Lungs: Lateral left lower lung calcified granuloma. No consolidation or edema. Pleural spaces: Normal. No pleural effusion. No pneumothorax. Heart/Mediastinum: Normal. No cardiomegaly. Bones/joints: Mild thoracic spine levoscoliosis with mild multilevel degenerative disc disease. IMPRESSION: No acute findings.
--- NOTE | 2024-01-18 18:00 | ED_ITS ---
Discharge Plan Disposition Patient Disposition: Home, Self-Care Chief Complaint: Chest Pain Prescriptions Prescriptions: No Action ondansetron 4 mg tablet,disintegrating 4 mg PO DAILY PRN (Reason: nausea and vomiting) 4 Days Qty: 16 0RF amlodipine 5 MG tablet 5 mg PO DAILY levothyroxine 75 MCG tablet 75 mcg PO DAILY Patient Comments: TAKE 1 TABLET BY MOUTH EVERY DAY vilazodone 40 MG tablet 40 mg PO AMLAB Patient Comments: TAKE 1 TABLET BY MOUTH EVERY DAY IN THE MORNING WITH BREAKFAST bupropion HCl 300 MG tablet extended release 24 hr 300 mg PO AMLAB ketorolac 10 MG tablet 10 mg PO Q6HP MDD 40mg/day PRN (Reason: Breakthru Moderate Pain) 4 Days Qty: 16 0RF Rx Instructions: Therapy initiated with IV/IM dose dexamethasone 4 MG tablet 4 mg PO BID 4 Days Qty: 8 0RF Referrals Follow up/Referrals: Provider,MD Shazia [Primary Care Provider] - See instructions Gasper Lawler MD [Staff Physician] - See instructions Activity Restrictions/Add. Instructions Additional Instructions/Restrictions: At this time it was felt you are safe to be discharged home. If new or worsening symptoms please do not hesitate to return the emergency department. Please call and schedule appoint with Dr. Lawler as soon as you are able. Clinical Impressions Clinical Impression: Chest pain Discharge ED Provider: Dionisio Torres [facility] General Chief Complaint: Chest Pain Stated Complaint: Chest Pain Time Seen by Provider: 01/18/24 17:42 History of Present Illness HPI narrative: Patient is a 63-year-old female with past medical history described above who presents emergency department for evaluation of chest pain. Onset was acute, couple hours prior to arrival, substernal, piercing through to her back, it was very transient and resolved however there was a feeling of pressure on her chest become concerning to her causing her to present here for continued evaluation. No abdominal pain, no vomiting, no other acute complaints at this time. Patient has a history of hypertension, no known coronary history. Related Data Home Medications Medication Instructions Recorded Confirmed amlodipine 5 mg tablet 5 mg PO DAILY htn 05/12/21 05/12/21 bupropion HCl 300 mg 24 hr tablet, 300 mg PO AMLAB Depression 05/12/21 05/12/21 extended release levothyroxine 75 mcg tablet 75 mcg PO DAILY thyroid 05/12/21 05/12/21 vilazodone 40 mg tablet 40 mg PO AMLAB Depression 05/12/21 05/12/21 Previous Rx's Medication Instructions Recorded dexamethasone 4 mg tablet 4 mg PO BID 4 days #8 tabs 05/14/21 ketorolac 10 mg tablet 10 mg PO Q6HP PRN Breakthru 05/14/21 Moderate Pain 4 days #16 tabs ondansetron 4 mg disintegrating 4 mg PO DAILY PRN nausea and 09/22/23 tablet vomiting 4 days #16 tabs Allergies Allergy/AdvReac Type Severity Reaction Status Date / Time quetiapine [From Seroquel] AdvReac Mild Irritable Verified 05/12/21 07:29 [facility] Disclaimer: The information contained in this section may have been updated after the patient was seen, as this information can be updated by other users. 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 ROS Obtained: Yes Systems reviewed as appropriate & no additional complaints except as documented Physical Exam General General appearance: alert and in no apparent distress Head Head exam: atraumatic and normocephalic Eye Eye exam: Present PERRL ENT ENT exam: Present mucous membranes moist Neck Neck exam: Present normal inspection Chest Chest inspection: Present normal inspection and symmetric chest wall rise Respiratory Respiratory exam: Present normal lung sounds bilaterally; Absent respiratory distress Cardiovascular Cardiovascular exam: Present regular rate and normal rhythm Abdominal Exam Abdominal exam: Present soft; Absent tenderness Extremities Exam Extremities exam: Present normal inspection Neurological Exam Neurological exam: Present alert Psychiatric Psychiatric exam: Present normal affect Skin Skin exam: Present warm and dry HEART Score HEART Score HEART Score assessment performed?: Yes History (anamnesis): Moderately suspicious ECG: Normal Age: 45-65 years Risk factors: 1-2 risk factors Troponin: </= normal limit HEART Score: 3 Critical Care Critical Care Time Critical Care Time: No Medical Decision Making Antwan Inquiry Pt receiving controlled substance: No Vital Signs Vital Signs: 01/18/24 18:00 01/18/24 18:17 01/18/24 18:30 Temperature 98.6 F Temperature Source Oral Pulse Rate 75 76 Pulse Rate [Left Radial] 81 Respiratory Rate 14 20 16 Blood Pressure 138/83 147/94 H Blood Pressure [Right Arm] 138/83 Blood Pressure Mean 112 122 Blood Pressure Mean [Right Arm] 101 02 Sat by Pulse Oximetry 94 L 98 98 Oxygen Delivery Method Room Air 01/18/24 19:00 01/18/24 19:30 01/18/24 20:00 Temperature Temperature Source Pulse Rate 76 64 64 Pulse Rate [Left Radial] Respiratory Rate 11 L 11 L 18 Blood Pressure 164/94 H 159/91 H 177/106 H Blood Pressure [Right Arm] Blood Pressure Mean Blood Pressure Mean [Right Arm] 02 Sat by Pulse Oximetry 99 100 99 Oxygen Delivery Method Room Air Room Air Room Air 01/18/24 20:30 Temperature Temperature Source Pulse Rate 67 Pulse Rate [Left Radial] Respiratory Rate 16 Blood Pressure 179/95 H Blood Pressure [Right Arm] Blood Pressure Mean Blood Pressure Mean [Right Arm] 02 Sat by Pulse Oximetry 99 Oxygen Delivery Method Room Air Lab Data Labs: Lab Results 01/18/24 17:37: WBC 8.0, RBC 4.60, Hgb 13.8, Hct 41.9, MCV 91.0, MCH 30.1, MCHC 33.0, RDW 13.6, Plt Count 232, MPV 8.5, Neut % (Auto) 61.1, Lymph % (Auto) 30.8, [place] % (Auto) 5.4, Eos % (Auto) 1.9, Baso % (Auto) 0.9, Neut # (Auto) 4.9, Lymph # (Auto) 2.5, [place] # (Auto) 0.4, Eos # (Auto) 0.2, Baso # (Auto) 0.1, D-Dimer 0.30, Sodium 139, Potassium 3.5, Chloride 103, Carbon Dioxide 27, Anion Gap 12.5, BUN 19 H, Creatinine 0.80, Estimated GFR 73, Est GFR ( Amer) 88, G lucose 101 H, Calcium 9.5, Total Bilirubin 0.4, AST 41 H, ALT 50, Alkaline Phosphatase 74, Troponin I < 0.01, Total Protein 7.2, Albumin 4.5, Globulin 2.7, Albumin/Globulin Ratio 1.7 01/18/24 20:42: Troponin I < 0.01 01/18/24 17:37 01/18/24 17:37 Response Orders (Tests/Meds): ED MEDICATIONS Discontinued Medications Generic Name Dose Route Start Last Admin Trade Name Tereso PRN Reason Stop Dose Admin Aspirin 324 mg 01/18/24 18:00 01/18/24 18:15 Aspirin 81mg Chewable Tablet PO 01/18/24 18:01 Not Given ONCE ONE ORDERS Category Date Time Status CXR --portable [XR chest portable] Stat Exams 01/18/24 17:59 Completed CBC w/Auto Diff [Complete Blood Count Auto Diff] Stat Lab 01/18/24 17:37 Completed CMP [Comprehensive Metabolic Panel] Stat Lab 01/18/24 17:37 Completed D-Dimer Stat Lab 01/18/24 17:37 Completed Trop I [Troponin I] Stat Lab 01/18/24 17:37 Completed Troponin I Q3H Lab 01/18/24 20:42 Completed Troponin I Q3H Lab 01/19/24 00:00 Ordered ECG Data Tracing #1: ECG Narrative: Independently interpreted by me, rate is 85, rhythm is regular, no ST elevation in anatomical contiguous leads, QTc 407 MDM Narrative Medical Decision Narrative: In summary patient is a 63-year-old female past medical history described above who presents emergency department for evaluation of chest pain. Patient is hemodynamically stable nontoxic-appearing upon arrival, afebrile. Differential diagnosis includes ACS, noncardiac chest pain, pulmonary embolism, among others. Workup will be conducted with chest x-ray, EKG, serial troponins, hematologic labs, D-dimer. Initial inventions include aspirin. Initial workup reviewed by me, hematologic labs are nonactionable, D-dimer effectively rules out pulmonary embolism and low risk aortic dissection, serial troponins undetectably low. Given this patient is appropriate for discharge at this time we will follow-up with Dr. Lawler on an outpatient basis.
[2024-01-18 18:09] LABS: Chloride 103 mmol/L (98-107); Potassium 3.5 mmoL/L (3.5-5.1); Sodium 139 mmol/L (136-145)
[2024-01-18 18:11] LABS: Alanine Aminotransferase 50 U/L (12-78); Aspartate Amino Transferase 41 U/L (14-36); Blood Urea Nitrogen 19 mg/dl (7-17); Estimated Glomerular Filt Rate 73 ml/min (>60); GFR (African American) 88 ML/MIN (>60)
[2024-01-18 18:12] LABS: Albumin Level 4.5 g/dl (3.5-5.0); Albumin/Globulin Ratio 1.7 (1.1-1.8); Alkaline Phosphatase 74 U/L (38-126); Anion Gap 12.5 mEq/L (5-15); Bilirubin,Total 0.4 mg/dl (0.2-1.3); Carbon Dioxide 27 mmol/L (22.0-30.0); Globulin 2.7 g/dL (1.3-3.2); Total Protein,Serum 7.2 g/dl (6.3-8.2)
[2024-01-18 18:13] LABS: Calcium 9.5 mg/dl (8.4-10.2); Glucose 101 mg/dl (74-100)
[2024-01-18 18:25] LABS: Troponin I < 0.01 ng/ml (0.00-0.034)
[2024-01-18 18:38] LABS: Basophils # 0.1 K/mm3 (0-0.2); Basophils % 0.9 % (0.1-2.0); Eosinophils # 0.2 K/mm3 (0.0-0.4); Eosinophils % 1.9 % (0.1-12.0); Hematocrit 41.9 % (37.0-47.0); Hemoglobin 13.8 g/dL (12.2-16.2); Lymphocytes # 2.5 K/mm3 (0.7-4.5); Lymphocytes % 30.8 % (10-50); Mean Corpuscular Hemoglobin 30.1 pg (27.0-31.2); Mean Platelet Volume 8.5 fl (7.4-10.4); Monocytes # 0.4 K/mm3 (0.1-1.0); Monocytes % 5.4 % (1.7-9.3); Neutrophils # 4.9 K/mm3 (1.8-7.8); Neutrophils % 61.1 % (37.0-80.0); Platelet Count 232 K/mm3 (142-424); Red Cell Distribution Width 13.6 % (11.5-17.5)
[2024-01-18 21:10] LABS: Troponin I < 0.01 ng/ml (0.00-0.034)
== END 2024-01-18 21:19 | disposition home or self-care (01) ==
PROVIDERS: Emergency Provider Emergency Medicine
DX: R07.9 Chest pain, unspecified (principal); I10 Essential (primary) hypertension
CPT/HCPCS: 71045; 80053; 84484; 85025; 85378; 93005; 99284

== ENCOUNTER 2024-04-25 07:04 | Outpatient (CLI) | payer OTHER, SELFPAY ==
--- NOTE | 2024-04-25 07:12 | CT_ITS ---
APPROVED REPORT Coding Quality Coordinator: CLINICAL INDICATION Chest Pain TECHNIQUE Image Acquisition: A 128 slice MDCT scanner ([employer]) was used for data acquisition. A noncontrast coronary calcium scan was performed. A CT attenuation threshold of 130 Hounsfield units (HU) was used for the detection of calcium in contiguous voxels of 1 sq mm in area to be counted as individual lesions. Bolus tracking in the ascending aorta with a threshold of 180 HU was performed. Immediately afterwards, ECG synchronized cardiac CT was then performed from the cardiac base to apex using retrospective gating with ECG tube current modulation. A total of 85 mL of Isovue 370 mg/mL contrast medium was administered at 5 mL/sec followed by a saline flush using a biphasic injection protocol. A tube voltage of 120 KVp was used. The patient received the following medications prior to the cardiac CT. 50 mg of oral metoprolol 15 mg of oral ivabradine 0.8 mg of sublingual nitroglycerin The average heart rate at the time of acquisition was 61 bpm and regular. Image Reconstruction Transaxial images were reconstructed at 0.67 mm slide thickness. Data was reviewed interactively on an advanced workstation capable of 2 and 3-dimensional displays in all conventional reconstruction formats, including multiplanar reformations, maximum intensity projections, curved multiplanar reformations, and volume rendered reconstructions. When applicable, selected routine images describing the relevant coronary anatomy and pathology were saved and sent to PACS. Complications None Technical Quality Overall image quality was good. Coronary artery opacification was adequate. Total DLP (Dose-Length Product) is 1805.5 mGy-cm. The reported value represents the total of one or more individual components during the CT acquisition of this date and at this time, and as such, the same value may appear in more than one CT report depending on the interpreting/reporting physicians. COMPARISON None FINDINGS CT Coronary Calcium Scoring LMA (Left Main Artery) = 0 LAD (Left Anterior Descending) = 0 LCX (Left Coronary Circumflex) = 0 RCA (Right Coronary Artery) = 0 Total Calcium Score = 0 using the AJ-130 method. The interpretation of the calcium heart score is based on the following continuum*: 0 = no calcified plaque detected (risk of coronary artery disease is very low ??? less than 5%) 1-10 = calcium detected in extremely minimal levels (risk of coronary diseases is still low ??? less than 10%) 11-100 = mild levels of plaque detected with certainty (mild or minimal narrowing of heart arteries is likely) 101-400 = definite,at least moderate levels of plaque detected (relatively high risk of a heart attack within 3-5 years) >401-999 = extensive levels of plaque detected (high risk of heart attack, high levels of vascular disease are present, high likelihood of at least one significant coronary narrowing) *The calcium heart score quantifies the burden of coronary calcification/plaque in the coronary arteries. The calcium heart score is not able to evaluate the presence or burden of non-calcified (i.e. soft) plaque. There is no identifiable calcification in the aortic valve, mitral annulus or mitral valve, pericardium, or myocardium. Coronary CT Angiography The coronary arterial system is left dominant. Quantitative Stenosis Grading: Left Main (LM): The left main originates normally from the left sinus of Valsalva. The LM bifurcates into the left anterior descending artery and left circumflex artery. The LM is patent with no evidence of atherosclerosis. Left Anterior Descending (LAD) and Diagonal Branches: The LAD gives off 3 diagonal branch(es). The LAD and its branches are patent with no evidence of atherosclerosis. There is a shallow mid-LAD myocardial bridge, measuring 9 mm in length and 1 mm in depth. Left Circumflex (LCX) and Obtuse Marginals (OM): The LCX gives off 2 Obtuse Marginal (OM) branch(es). The LCX and its branches are patent with no evidence of atherosclerosis. Right Coronary Artery (RCA): The RCA originates normally from the right sinus of Valsalva. The RCA gives off a posterior descending artery (PDA) and posterolateral (PL) branches. The RCA and its branches are patent with no evidence of atherosclerosis. Non-Coronary Cardiac Findings: Analysis of the left ventricular (LV) structure and function was performed after 3-D reconstruction of the LV from axial images, with user-corrected automatic contouring for assessment of LV volumes and user-defined reconstruction from oblique planes for measurement of 3-D cardiac structure and function. -The left ventricle systolic function is normal. -There is no left atrial appendage filling defect. Two right pulmonary veins and two left pulmonary veins drain normally into the left atrium. -No pericardial thickening or calcification. -Central and branch pulmonary arteries in the [id number] are unremarkable. -Thoracic aorta within the visualized thoracic aortic-branches in the [id number] is unremarkable. Extracardiac Structures No significant extra-cardiac findings. Note, however, that this study is focused on the cardiac findings. IMPRESSION -Absence of coronary calcification with an Agatston score = 0 using the AJ-130 method. -No evidence of significant flow-limiting atherosclerosis of the coronary arteries. -Shallow mid-LAD myocardial bridge, measuring 9 mm in length and 1 mm in depth. -CAD-RADS 0. Management recommendations per ACC/AHA guidelines*, as clinically appropriate. *Recommendations: CAD RADS 0: Reassurance. Consider non-atherosclerotic causes of chest pain. CAD RADS 1: Consider non-atherosclerotic causes of chest pain. Consider preventive therapy and risk factor modification. CAD RADS 2: Consider non-atherosclerotic causes of chest pain. Consider preventive therapy and risk factor modification, particularly for patients with nonobstructive plaque in multiple segments. CAD RADS 3: Consider further functional testing. Consider symptom-guided anti-ischemic and preventive pharmacotherapy as well as risk factor modification per published guideline statements. CAD RADS 4A: Consider further functional testing or invasive coronary angiography with revascularization per published guideline statements. Consider symptom-guided anti-ischemic and preventive pharmacotherapy as well as risk factor modification per published guideline statements. CAD RADS 4B: Invasive coronary angiography recommended with revascularization per published guideline statements. Consider symptom-guided anti-ischemic and preventive pharmacotherapy as well as risk factor modification per published guideline statements. CAD RADS 5: Consider invasive angiography and/or viability assessment with revascularization per published guideline statements. Consider symptom-guided anti-ischemic and preventive pharmacotherapy as well as risk factor modification per published guideline statements. CRITICAL RESULT None COMMUNICATION Per this written report The coronary and cardiac findings of this CCTA were reviewed, reported, and signed by Florencio South MD ([place]) Conclusion Electronically signed by : Triny South MD 04/26/2024 12:11:37
[2024-04-25 07:22] VITALS: BMI 27.3
[2024-04-25 07:29] VITALS: BP 141/78; PULSE 74; RESP 16; O2SAT 97
[2024-04-25] MEDS: IVABRADINE HCL 7.5MG TABLET PO (07:37)
[2024-04-25] MEDS: METOPROLOL TARTRATE 50MG TABLET PO (07:37)
[2024-04-25 07:45] LABS: Chloride 103 mmol/L (98-107); Potassium 3.8 mmoL/L (3.5-5.1); Sodium 137 mmol/L (136-145)
[2024-04-25 07:48] LABS: Anion Gap 7.8 mEq/L (5-15); Blood Urea Nitrogen 12 mg/dl (7-17); Carbon Dioxide 30 mmol/L (22.0-30.0); Creatinine Clearance Estimated 67 mL/min (50-200); Estimated Glomerular Filt Rate 73 ml/min (>60); GFR (African American) 88 ML/MIN (>60); Glucose 118 mg/dl (74-100)
[2024-04-25 07:49] LABS: Calcium 8.6 mg/dl (8.4-10.2)
[2024-04-25 08:20] VITALS: BP 123/88; PULSE 61; O2SAT 97
[2024-04-25 08:23] VITALS: BP 150/87; PULSE 65; O2SAT 97
[2024-04-25 08:26] VITALS: BP 121/75; PULSE 63; O2SAT 97
[2024-04-25 08:29] VITALS: BP 111/71; PULSE 62; O2SAT 96
[2024-04-25 08:32] VITALS: BP 123/75; PULSE 63; O2SAT 97
[2024-04-25] MEDS: 0.9 % SODIUM CHLORIDE 50 ML VIAL IV (08:37)
[2024-04-25] MEDS: SODIUM CHLORIDE 0.9% 10ML SYR (RAD ONLY) 10 ML IV (08:37)
[2024-04-25] MEDS: IOPAMIDOL-370 (76%);100ML BOTTLE 85 ML IV (08:37)
[2024-04-25] MEDS: NITROGLYCERIN 0.4MG SL TABLET SL (08:42)
== END 2024-04-25 08:45 | disposition home or self-care (01) ==
PROVIDERS: PCP Student in an Organized Health Care Education/Training Program; Visit Provider Nurse Practitioner Family
DX: R06.09 Other forms of dyspnea (principal); R07.89 Other chest pain; R94.31 Abnormal electrocardiogram [ECG] [EKG]; Z82.49 Family history of ischemic heart disease and other diseases of the circulatory system
CPT/HCPCS: 75574; 80048; Q9967

== ENCOUNTER 2024-05-02 14:38 | Outpatient (CLI) | payer OTHER, SELFPAY ==
--- NOTE | 2024-05-02 15:01 | CA_ITS ---
APPROVED REPORT EXAM: Comprehensive 2D, Doppler, and color-flow Echocardiogram Rn Admission: [facility] CRT Ht: 5 ft 4 in Wt: 159lbs BSA: 1.77 BP: 141/83 mmHg Indications: Chest Pain, Shortness of Breath, Hypertension/HDD, mvp? 2D Dimensions LA Volume 49.50 mL LA Volume Index 27.20 mL/m2 (M/F) 16-34 M-Mode Dimensions RVDd 3.58 cm (0.9-2.6) LA Diam 3.78 cm (1.9-4.0) LVDd 3.36 cm (3.5-5.7) LVDs 2.58 cm (3.5-5.7) IVSd 1.75 cm (0.6-1.1) PWd 0.97 cm (0.6-1.1) EF (Teich) 47.70% FS 23.20% EDV (Teich) 46.10 mL ESV (Teich) 24.10 mL LV Diastology E Decel Time 150 (160-240 msec) E/A Ratio 0.79 MED A' 16.70 cm/s LAT A' 14.90 cm/s Aortic Valve AO Peak GR. 6.70 mmHg Mitral Valve MV E Max Tha. 68.0 (40-130 cm/s) MV A Velocity 86.0 (40-130 cm/s) E/A Ratio 0.79 MV PHT 44.0 ms Pulmonary Valve PV Peak Velocity 90.0 (50-150 cm/s) Tricuspid Valve TR P. Velocity 231.00 cm/s RAP Estimate 10.00 mmHg RVSP 31.40 mmHg Left Ventricle The left ventricle is normal size. The left ventricular systolic function is normal. The left ventricular ejection fraction is within the normal range. There is increased LV wall thickness. Proximal wall thickening is noted. There is normal LV segmental wall motion. Transmitral Doppler flow pattern suggests impaired LV relaxation. LVEF is 60%. Right Ventricle The right ventricle is normal size. The right ventricular systolic function is normal. Atria Left atrium is mildly dilated. The right atrium size is normal. There is no Doppler evidence of interatrial shunt. Aortic Valve The aortic valve opens well. There is no aortic valvular stenosis. No aortic regurgitation is present. Mitral Valve The mitral valve is normal in structure. No evidence of mitral valve stenosis. Trace mitral valve regurgitation. There is no evidence of mitral valve prolapse. Tricuspid Valve The tricuspid valve leaflets are thin and pliable. Mild tricuspid regurgitation. RVSP is 20-25 mmHg. Pulmonic Valve The pulmonary valve is normal in structure. Trace pulmonic regurgitation. Great Vessels The aortic root is normal in size. The ascending aorta is normal in size. IVC is normal in size and collapses >50% with inspiration. Pericardium There is no pericardial effusion. Other Information Study Quality: Fair Conclusion Normal biventricular systolic function. No significant valvular stenosis or regurgitation. No evidence of mitral valve prolapse. Electronically signed by : Triny South MD 05/03/2024 01:02:01
== END 2024-05-02 23:59 | disposition home or self-care (01) ==
LOC: RT 14:39
PROVIDERS: PCP Student in an Organized Health Care Education/Training Program; Visit Provider Nurse Practitioner Family
DX: I34.1 Nonrheumatic mitral (valve) prolapse (principal)
CPT/HCPCS: 93306